=== PATIENT | female | born 1990 | race Caucasian/White ===

== ENCOUNTER 2020-03-02 00:05 | Outpatient (CLI) | payer OTHER, SELFPAY ==
[2020-03-02 19:45] LABS: SARS-CoV-2 RNA PCR Negative
== END 2020-03-02 00:06 | disposition home or self-care (01) ==
LOC: ANHCOVIDDT 00:05
PROVIDERS: Visit Provider Orthopaedic Surgery
DX: Z01.818 Encounter for other preprocedural examination (principal); Z11.59 Encounter for screening for other viral diseases; S92.102A Unspecified fracture of left talus, initial encounter for closed fracture
CPT/HCPCS: 87635; C9803; U0003

== ENCOUNTER 2020-03-04 02:18 | Day surgery (SDC) | payer OTHER, SELFPAY ==
[2020-02-19 16:38] VITALS: BMI 23.7
[2020-03-04] VITALS (9 sets, daily range): BP systolic 98–125; BP diastolic 49–91; PULSE 58–87; RESP 12–20; TEMP 36.5–36.6; O2SAT 99–100
--- NOTE | ~2020-03-04 | XR_ITS ---
EXAMINATION: XR surgery orthopedic DATE: 03/04/2020 12:11 INDICATION: ORIF left ankle TECHNIQUE: 3 fluoroscopic spot images of the left ankle were obtained during procedure performed by Apple Elam. Radiologist was not present for the imaging or procedure. The amount of fluoroscopy time used during this procedure was 0.1 minutes. COMPARISON: 02/20/2020 FINDINGS: Cannulated headless screw fixation at the lateral process of the talus. Alignment appears essentially anatomic. Joint spaces appear normal. IMPRESSION: 1. Fluoroscopy utilized during ORIF of a reported intra-articular fracture at the lateral process of the talus. See procedure note for further detail. Reviewed, dictated and finalized at location A. IMPRESSION: 1. Fluoroscopy utilized during ORIF of a reported intra-articular fracture at t he lateral process of the talus. See procedure note for further detail.
--- NOTE | 2020-03-04 07:18 | WPDHPUPDATE1 ---
History and Physical Update Update Date/Time: 03/04/20 07:18 History and Physical has been reviewed, including an updated exam of the patient. There are NO changes in the patient's condition. CT scan performed in the interim and reviewed shows lateral process talus fracture with comminution and incomplete healing. Risks, benefits, and alternatives have been discussed and questions answered. Patient agrees to proceed with procedure.
--- NOTE | 2020-03-04 09:44 | WPDANESEPPF ---
Anes - Initial Pre Proc Eval Procedure: Operation Date: 03/04/20 11:00 Proposed Procedures p Open Reduction Internal Fixation Left Talus, Proceed As Indicated - Sam Elam MD Date/Time: 03/04/20 09:44 Surgeon: Sam Elam MD Pre Op Diagnosis: Left Talus Fracture Patient Data Age: 30 Gender: F Height: 5 ft 6 in Weight: 66.68 kg Allergies Allergy/AdvReac Type Severity Reaction Status Date / Time fluticasone [From Flonase] Allergy Unknown Dizziness Verified 02/19/20 17:00 Home Medications Medication Instructions Recorded Confirmed Type diclofenac sodium 75 mg PO BID 02/19/20 02/19/20 History multivitamin [Daily Vitamin 1 tablet PO DAILY 02/19/20 02/19/20 History Formula] Patient hx anesthesia problems: none Family hx anesthesia problems: none PMFSH Past Medical History Medical History Asthma Fracture of talus of left ankle, closed Family History Family History Other Arthritis Hypertension Social History Social History Smoking status: Never smoker Alcohol intake: current Substance use: unknown Anes - Eval Final PreProcedure Day of Procedure 03/04/20 09:44 Patient weight: normal Heart: regular rate and rhythm Lungs: clear to auscultation Airway: Mallampati scale class II Neurological: alert and oriented Last oral intake: >/= 8 hours ASA classification: II Emergent: no Anesthetic plan: proceed Anesthesia type and monitoring: general LMA and standard monitoring Informed Consent: The patient's anesthetic plan and its attendant risks and benefits were discussed with the patient/family/POA. Questions were solicited and answers provided to the satisfaction of the patient/family/POA.
[2020-03-04] MEDS: LACTATED RINGERS 1,000 ML 30 ML IV CONT ×2 (10:00→12:31)
[2020-03-04 10:27] LABS: Beta HCG Quantitative 211.66 mIU/ML
[2020-03-04] MEDS: ceFAZolin 2 GM/D5W 50 ML 2 GM/50 ML BAG IVPB (11:15)
--- NOTE | 2020-03-04 11:26 | WPDHPUPDATE1 ---
History and Physical Update Update Date/Time: 03/04/20 11:26 History and Physical has been reviewed, including an updated exam of the patient. There are changes in the patient's condition. Routine test positive. Based on patient history and the level may be in the 1st 2 to 3 weeks of . This was reviewed in detail with the patient and her fiance. Option of delaying surgery discussed. Risk of loss of and problems with the child reviewed in detail. Patient is adamant about proceeding with her surgery. She has declined delaying the procedure. Risks, benefits, and alternatives have been discussed and questions answered. Patient agrees to proceed with procedure.
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
== END 2020-03-04 14:35 | disposition home or self-care (01) ==
PROVIDERS: Anesthesiology; Visit Provider Orthopaedic Surgery
PROC: (CPT 28445; principal; 2020-03-04 11:00)
DX: S92.142A Displaced dome fracture of left talus, initial encounter for closed fracture (principal); V89.2XXA Person injured in unspecified motor-vehicle accident, traffic, initial encounter; Z33.1 Pregnant state, incidental; J45.909 Unspecified asthma, uncomplicated
CPT/HCPCS: 28445; 36415; 84702; J0131; J0690; J1170; J1741; J2250; J2704; J3010; J7120